=== PATIENT | female | born 2005 | race Two or more races ===

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

== ENCOUNTER 2024-03-16 16:54 | Emergency (ER) | payer OTHER ==
[~2024-03-16] VITALS: Ht 157.5 cm; Wt 48.1 kg
[~2024-03-16 16:54] MED LIST: RESTORIL15 MG; ZOLOFT50 MG
[2024-03-16 17:47] LABS: HEMATOCRIT 40.1 % (36.0-45.00); HEMOGLOBIN 13.6 g/dL (12.0-15.00); MEAN CELL VOLUME 85.6 fL (80.00-100.00); MEAN CORPUSCULAR HEMOGLOBIN 28.9 pg (27.00-32.0); MEAN CORPUSCULAR HGB CONC 33.8 g/dl (32.0-36.0); PLATELET COUNT 291 K/uL (150-450); RED BLOOD COUNT 4.69 M/uL (4.00-6.00); RED CELL DISTRIBUTION WIDTH 13.3 % (11.5-14.5)
[2024-03-16 18:17] LABS: ALBUMIN 4.4 gm/dL (3.4-5.0); BILIRUBIN TOTAL 0.51 mg/dL (0.3-1.2); CALCIUM 10.1 mg/dL (8.5-10.1); CREATININE SERUM 0.84 mg/dL (0.55-1.02); GFR 87.34; GLOBULINA 3.9 G/DL (2.4-3.5); POTASSIUM 3.77 mEq/L (3.5-5.1); TOTAL PROTEIN 8.3 gm/dL (6.4-8.2)
[2024-03-16] MEDS ORDERED: METHYLPREDNISOLONE SOD SUCC 40 MG VIAL IM STA (18:20)
[2024-03-16] MEDS ORDERED: BUDESONIDE 0.25 MG/2 ML AMPUL.NEB IH STA (18:21)
[2024-03-16] MEDS ORDERED: ALBUTEROL SULFATE 3 ML/2.5 MG AMPUL.NEB IH SCH (18:30)
[2024-03-16] MEDS ORDERED: METHYLPREDNISOLONE SOD SUCC 40 MG VIAL ONE (18:36)
[2024-03-16] MEDS ORDERED: WATER FOR INJ.,BACTERIOSTATIC 30 ML VIAL IJ ONE (18:37)
[2024-03-16] MEDS ORDERED: ALBUTEROL SULFATE 3 ML/2.5 MG AMPUL.NEB IH ONE (19:58)
[2024-03-16] MEDS ORDERED: BUDESONIDE 0.25 MG/2 ML AMPUL.NEB IH ONE (19:58)
== END 2024-03-16 20:58 | disposition home or self-care (01) ==
LOC: ER 16:55 → EMR PED 16:56 → ER 16:56 → EMR PED 20:58
PROVIDERS: Emergency Medicine
DX: R07.9 Chest pain, unspecified (principal); F19.90 Other psychoactive substance use, unspecified, uncomplicated; Z20.822 Contact with and (suspected) exposure to COVID-19

== ENCOUNTER 2024-09-28 21:30 | Emergency (ER) | payer OTHER ==
[~2024-09-28] VITALS: Ht 157.5 cm; Wt 48.1 kg
[2024-09-28] MEDS ORDERED: BUTALB/ACETAMINOPHEN/CAFFEINE 1 TAB TABLET PO ONE ×2 (23:00→23:05)
[2024-09-28] MEDS ORDERED: CEFTRIAXONE SODIUM 1,000 MG VIAL IM ONE (23:00)
[2024-09-28] MEDS ORDERED: CEFTRIAXONE SODIUM 1,000 MG VIAL ONE (23:05)
== END 2024-09-28 23:58 | disposition home or self-care (01) ==
LOC: EMR PED 21:32 → ER 21:32
DX: N61.1 Abscess of the breast and nipple (principal)
CPT/HCPCS: 10060; 96372; 99282; J0696

== ENCOUNTER 2025-03-02 23:46 | Emergency (ER) | payer OTHER ==
[~2025-03-02] VITALS: Ht 157.5 cm; Wt 47.2 kg
[2025-03-03] MEDS ORDERED: KETOROLAC TROMETHAMINE 60 MG VIAL IM STA (01:39)
[2025-03-03 02:10] LABS: BASO % 0.3 % (0.1-1.2); EOS # 0.08 (0.04-0.54); EOS % 0.9 % (0.7-7.0); LYMPH # 2.46 (1.18-3.74); LYMPH % 26.5 % (19.3-53.1); MEAN PLATELET VOLUME 8.40 fl (9.4-12.4); MONO # 0.54 (0.24-0.82); MONO % 5.8 % (4.7-12.5); NEUT # 6.15 (1.56-6.13); NEUT % 66.3 % (34.0-71.1); RED CELL DISTRIBUTION WIDTH 12.0 % (11.6-14.4)
[2025-03-03] MEDS ORDERED: KETO10TA2 PO (03:54)
== END 2025-03-03 04:00 ==
LOC: ER 23:57 → EMR PED 23:57 → ER 03-03 04:00
PROVIDERS: General Practice
DX: N83.02 Follicular cyst of left ovary (principal); Z97.5 Presence of (intrauterine) contraceptive device